=== PATIENT | male | born 1975 | race Caucasian/White ===

== ENCOUNTER 2016-09-26 13:29 | Emergency (ER) ==
[2016-09-26] MEDS ORDERED: CLINDAMYCIN IM ONE (14:11)
[2016-09-26] MEDS ORDERED: XYLOCAINE 1% INJ ONE (14:11)
--- NOTE | 2016-09-26 14:12 | PROVIDER DOCUMENTATION ---
HPI-Rash/Wound/ReCheck - General Chief Complaint: Abscess Stated Complaint: POSS ABSCESS Time Seen by Provider: 09/26/16 14:05 Source: patient Allergies/Adverse Reactions: Allergies Allergy/AdvReac Type Severity Reaction Status Date / Time doxycycline Allergy Severe SWELLING Verified 09/26/16 14:27 Home Medications: Home Medication List Medication Instructions Recorded Confirmed Last Taken Type Clindamycin [Cleocin] 150 mg PO Q6HR #30 capsule 09/26/16 Unknown Rx Hydrocodone/APAP 7.5 mg/325 mg 1 each PO Q6H PRN PRN #14 tablet 09/26/16 Unknown Rx [[place]-7.5] Ibuprofen [Motrin] 800 mg PO Q8H PRN PRN #20 tablet 09/26/16 Unknown Rx Omeprazole [Prilosec] 20 mg PO DAILY@0700 #20 capsule 09/26/16 Unknown Rx Sulfamethoxazole/Trimethoprim 1 each PO BID #10 tablet 09/26/16 Unknown Rx [Bactrim Ds Tablet] - History of Present Illness-Dermatology Nature of Presenting Problem: Pt is a 41 y/o M c chief complaint of abscess to the posterior aspect of his R upper leg x 5 days. 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 Pt denies any fever, nausea, vomiting, or spreading erythema. On arrival, pt is in minimal distress and afebrile. Review of Systems - Adult - REVIEW OF SYSTEMS - ADULT Constitutional: reports: no symptoms reported. denies: chills, fatique Eyes: reports: no symptoms reported. denies: blurred vision, double vision Ears, Nose, Mouth & Throat: reports: no symptoms reported. denies: ear pain, nose pain, throat pain Cardiovascular: reports: no symptoms reported. denies: chest pain, orthopnea Respiratory: reports: no symptoms reported. denies: cough, shortness of breath Gastrointestinal: reports: no symptoms reported. denies: abdominal pain, nausea Genitourinary: reports: no symptoms reported. denies: dysuria, hematuria Musculoskeletal: reports: no symptoms reported. denies: joint pain, joint swelling Integumentary: reports: see HPI, skin sores/ulcer. denies: hives, itching, rash Neurological: reports: no symptoms reported. denies: numbness, paresthesia Psychiatric: reports: no symptoms reported. denies: anxiety, emotional problems Endocrine: reports: no symptoms reported. denies: cold intolerance, heat intolerance Hematologic/Lymphatic: reports: no symptoms reported. denies: blood clots, low blood count Allergic/Immunologic: reports: no symptoms reported. denies: allergic reactions , eczema All Other Systems: Reviewed and Negative Past History - Adult - PAST MEDICAL HISTORY-ADULT Review of Records: reports: Old Records Reviewed, Nursing Assessment Review, Medications Reviewed, Social history reviewed & non-contributory. Major Childhood Illnesses: reports: denies history Cardiovascular: reports: denies history Respiratory: reports: denies history Gastrointestinal: reports: denies history Obstetrical/Gynecological: reports: denies history Genitourinary: reports: denies history Musculoskeletal: reports: denies history Neurological: reports: denies history Endocrine/Immune: reports: denies history Other Conditions: reports: MRSA, skin disorder - PRIOR SURGERIES/PROCEDURES Surgical/Procedure History: reports: other (multiple I&D) - IMMUNIZATION STATUS Childhood Immunizations: See Nurse Assessment Flu Vaccine: See Nurse Assessment - FAMILY HISTORY Family History: reviewed, not pertinent - SOCIAL HISTORY Smoking: denies Substance Use: none/never Alcohol Use Frequency: never Living Situation: family Physical Exam-General - PHYSICAL EXAM-ADULT Initial Vital Signs Reviewed: Yes - CONSTITUTIONAL General Appearance: appears well, alert, no apparent distress - EYES Eyes: PERRL/EOMI, pink conjunctivae - HEAD, EARS, NOSE, MOUTH & THROAT HENMT: normocephalic/atraumatic, moist mucous membranes, normal ENT inspection - NECK Neck: non-tender - RESPIRATORY Respiratory: chest non-tender, lungs clear, normal breath sounds - CARDIOVASCULAR Cardiovascular: normal peripheral pulses - CHEST (BREASTS) Chest/Breast: deferred - GASTROINTESTINAL (ABDOMEN) Abdominal Exam: normal bowel sounds, non tender, soft - LYMPHATIC Lymphatic: no adenopathy - MUSCULOSKELETAL Back Exam: normal inspection, no CVA tenderness, no vertebral tenderness - SKIN Integumentary: other (3 cm raised abscess, indurated, fluctuance, surrounding erythema) - NEUROLOGIC Neurologic: grossly normal, no motor/sensory deficits - PSYCHIATRIC Psych/Mental Status: normal mood/affect, normal thought content, normal thought process, oriented x 3 Progress - PLAN OF CARE/RESULTS Progress/Plan/Lab Results: Orders Category Date Time Status I&D [I and D Set up] DIRECTED Care 09/26/16 14:12 Active Clindamycin Med 09/26/16 14:11 Discontinued 600 mg IM NOW ONE Lidocaine 1% [Xylocaine 1%] Med 09/26/16 14:11 Discontinued 10 ml INJ NOW ONE Vital Signs - 24 hr 09/26/16 09/26/16 13:44 14:38 Temperature 98.3 F Pulse Rate 96 H 90 Respiratory 18 18 Rate Blood Pressure 154/78 126/77 O2 Sat by Pulse 100 100 Oximetry - REASSESSMENT Reassessment #1 Time Reassessed: 14:42 (Pt states the he is refusing a I&D. He would like an injection of abx and will follow up with general surgery for further evaluation. ) Departure - Departure Time of Disposition Order: 14:43 DIAGNOSIS: Abscess of leg, right Disposition: HOME 01 Certified Medical Emergency: Emergent Condition: Stable Additional Instructions: KEEP WOUND COVERED. CHANGE BANDAGE DAILY. FOLLOW UP WITH DR. SOUSA (GENERAL SURGERY) TOMORROW. ED Follow Up Instructions: You have been treated by a care provider in the Emergency Department. These instructions are being provided to you so you can have an understanding of how to care for yourself upon discharge. Upon discharge from the Emergency Department, you are responsible for making arrangements for follow-up care by a physician of your choice. Take all prescribed medications as directed. Return to the Emergency Department immediately for any new or worsening symptoms. You may call the Physician Referral phone number at [phone] to obtain a list of Physicians who are taking new patients. Prescriptions: Sulfamethoxazole/Trimethoprim [Bactrim Ds Tablet] 1 each PO BID #10 tablet Clindamycin [Cleocin] 150 mg PO Q6HR #30 capsule Ibuprofen [Motrin] 800 mg PO Q8H PRN PRN #20 tablet PRN Reason: inflammation Hydrocodone/APAP 7.5 mg/325 mg [[place]-7.5] 1 each PO Q6H PRN PRN #14 tablet PRN Reason: Pain Omeprazole [Prilosec] 20 mg PO DAILY@0700 #20 capsule Referrals: Atilio Sousa MD [STAFF PHYSICIAN] - Samantha Lopez MD [Primary Care Provider] - Attestation - Physician/ MAURICIO Attestation Patient care was provided by Advanced Practice Provider:: Yes Advanced Practice Provider:: Jayesh Garcia Advanced Practice Provider documentation review:: The Mid-level provider documentation, treatment plan and medical decision making was reviewed by the physician who agrees with all treatment and medical decision making by the MLP.
[2016-09-26 14:39] VITALS: BP 126/77
== END 2016-09-26 15:17 | disposition home or self-care (01) ==
LOC: ED 13:29
DX: L02.415 Cutaneous abscess of right lower limb (principal); L53.9 Erythematous condition, unspecified; Z86.14 Personal history of Methicillin resistant Staphylococcus aureus infection
CPT/HCPCS: S0077